=== PATIENT | female | born 1960 | race Caucasian/White ===

== ENCOUNTER 2023-09-06 07:59 | Inpatient (IN) | payer SELFPAY ==
[2023-09-06] MEDS ORDERED: Ondansetron PF 4 MG/2 ML Vial ONE (08:15)
[2023-09-06 08:56] LABS: #Basophils 0.1 thou/uL (0.0-0.2); #Eosinphils 0.1 thou/uL (0.0-0.7); #Monocytes 0.5 thou/uL (0.11-0.59); #Neutrophils 4.5 thou/uL (1.40-6.50); %Basophils 0.8 % (0.0-1.0); %Lymphocytes 19.4 % (21.0-51.0); %Monocytes 7.9 % (0.0-10.0); %Neutrophils 70.6 % (42.0-75.0); Hematocrit 37.5 % (36.0-47.0); Hemoglobin 12.7 g/dL (12.0-16.0); Mean Corpuscular HGB CONC 33.9 g/dL (32.0-36.0); Mean Corpuscular Hemoglobin 29.2 pg (27.0-31.0); Mean Corpuscular Volume 86.2 fl (78.0-98.0); Mean Platelet Volume 10.4 fL (7.4-10.4); Platelet Count 307 10x3/uL (130-400); RBC Distribution Width 11.7 % (11.5-14.5); Red Blood Cell (RBC) Count 4.35 mill/uL (4.20-5.40); White Blood Cell (WBC) Count 6.3 10x3/uL (4.8-10.8)
[2023-09-06 09:18] LABS: ALT (SGPT) 10 U/L (8-55); AST (SGOT) 18 U/L (5-34); Albumin 3.7 g/dL (3.4-4.8); Alkaline Phosphatase 109 U/L (40-110); Anion Gap 20 mmol/L (10-20); BUN (Urea Nitrogen) 15 mg/dL (9.8-20.1); Bilirubin, Total 0.5 mg/dL (0.2-1.2); Calc. Creatinine Clearance 0 mL/min (70-130); Carbon Dioxide 21 mmol/L (23-31); Chloride 95 mmol/L (98-107); Estimated GFR 63; Globulin 3.7 g/dL (2.4-3.5); Potassium 3.9 mmol/L (3.5-5.1); Protein, Total 7.4 g/dL (5.8-8.1); Sodium 132 mmol/L (136-145)
[2023-09-06 09:28] LABS: Troponin I 0.592 ng/mL (< 0.028)
[2023-09-06 09:29] LABS: Glucose 570 mg/dL (80-115)
[2023-09-06] MEDS ORDERED: Nitroglycerin 0.4 MG TAB 1 EACH ONE (09:54)
[2023-09-06] MEDS ORDERED: Insulin Regular 300 UNITS/3 ML VIAL ONE (09:55)
[2023-09-06] MEDS ORDERED: Glucagon 1 MG/ML KIT IM PRN (10:09)
[2023-09-06] MEDS ORDERED: Dextrose 50% Abboject 50 ML SYRINGE SLOW IVP PRN (10:09)
[2023-09-06] MEDS ORDERED: Dextrose 5% in Water 1,000 ML IV PRN (10:09)
[2023-09-06] MEDS ORDERED: Nitroglycerin 0.4 MG TAB (25 Tab Bottle) SL PRN (10:09)
[2023-09-06] MEDS ORDERED: Insulin Regular 300 UNITS/3 ML VIAL SC PRN (10:09)
[2023-09-06] MEDS ORDERED: Communication Order-Pharmacy FS SCH (10:11)
[2023-09-06 12:15] VITALS: BMI 26.7
[2023-09-06] MEDS ORDERED: Aspirin 81 mg Enteric Coated Tablet PO SCH (12:15)
[2023-09-06] MEDS ORDERED: Acetaminophen 325 MG TAB PO PRN (14:35)
[2023-09-06] MEDS ORDERED: Nitroglycerin 2% Ointment 1 INCH/1 GM Packet ONE (15:15)
[2023-09-06 15:16] LABS: Troponin I 3.907 ng/mL (< 0.028)
[2023-09-06] MEDS ORDERED: Nitroglycerin 2% Ointment 1 INCH/1 GM Packet TOP SCH (15:45)
[2023-09-06] MEDS ORDERED: Morphine 2 MG/ML VIAL SLOW IVP SCH (15:45)
[2023-09-06] MEDS: Insulin Regular 300 UNITS/3 ML VIAL SC PRN (15:53)
[2023-09-06] MEDS: Nitroglycerin 50 MG/250 ML BOT 250 ML IVPB SCH (16:16)
[2023-09-06] MEDS: Atorvastatin Calcium 40 MG TAB PO SCH (20:28)
[2023-09-07] MEDS ORDERED: Communication Order-Pharmacy FS SCH ×2 (06:00→17:03)
[2023-09-07] MEDS: Insulin Regular 300 UNITS/3 ML VIAL SC PRN ×3 (06:39→16:31)
[2023-09-07 08:09] LABS: Cardiac Risk 8.3 (Less than 4.5)
[2023-09-07] MEDS ORDERED: Verapamil 5 MG/2 ML VIAL ONE (08:45)
[2023-09-07] MEDS ORDERED: Midazolam HCl 2 mg/2 ml Vial ONE (08:45)
[2023-09-07] MEDS ORDERED: fentaNYL 50 mcg/mL 1 mL Vial ONE (08:45)
[2023-09-07] MEDS ORDERED: Adenosine 6 MG/2 ML VIAL ONE (08:45)
[2023-09-07] MEDS ORDERED: Lidocaine 1% (PF) 30 ML VIAL ONE ×2 (08:46→12:32)
[2023-09-07] MEDS ORDERED: Heparin 10,000 UNITS/ 10 ML VIAL ONE ×2 (08:46→12:32)
[2023-09-07] MEDS ORDERED: Nitroglycerin 50 MG/250 ML BOT 0 ML ONE (08:46)
[2023-09-07] MEDS ORDERED: Iopamidol 370 76% 100 ML VIAL ONE (08:50)
[2023-09-07] MEDS: Metoprolol Tartrate 25 MG TAB PO SCH ×2 (08:56→19:43)
[2023-09-07] MEDS ORDERED: Aspirin 81 mg Enteric Coated Tablet PO SCH (09:00)
[2023-09-07] MEDS ORDERED: NOREPINEPHRINE 8 MG/250 ML-D5W 250 ML ONE (14:13)
[2023-09-07] MEDS ORDERED: Metoprolol Tartrate 25 MG TAB PO SCH (16:15)
[2023-09-07] MEDS: Nitroglycerin 50 MG/250 ML BOT 250 ML IVPB SCH (16:50)
[2023-09-07 18:33] LABS: Troponin I 36.018 ng/mL (< 0.028)
[2023-09-07] MEDS: Atorvastatin Calcium 40 MG TAB PO SCH (19:43)
[2023-09-08] MEDS: Metoprolol Tartrate 25 MG TAB PO SCH (05:20)
[2023-09-08] MEDS: Insulin Regular 300 UNITS/3 ML VIAL SC PRN (05:21)
[2023-09-08 05:33] LABS: Hemoglobin A1c Greater than 14.0 % (4.0-6.0)
[2023-09-08 05:47] LABS: Anion Gap 20 mmol/L (10-20); BUN (Urea Nitrogen) 10 mg/dL (9.8-20.1); Calc. Creatinine Clearance 80 mL/min (70-130); Calcium 9.3 mg/dL (7.8-10.44); Carbon Dioxide 16 mmol/L (23-31); Chloride 102 mmol/L (98-107); Estimated GFR 80; Glucose 327 mg/dL (80-115); Potassium 3.7 mmol/L (3.5-5.1); Sodium 134 mmol/L (136-145)
[2023-09-08] MEDS ORDERED: Lactated Ringer's 1,000 ML IV SCH (06:00)
[2023-09-08] MEDS ORDERED: Ketamine In 0.9 % NaCl 50 MG/5 ML SYRINGE ONE (07:56)
[2023-09-08] MEDS ORDERED: Aminocaproic Acid 5 GM/20 ML VIAL ONE ×2 (07:56→10:54)
[2023-09-08] MEDS ORDERED: PROPOFOL 20 ML ONE (07:56)
[2023-09-08] MEDS ORDERED: Lidocaine 2% PF 5 ML VIAL ONE (07:56)
[2023-09-08] MEDS ORDERED: Fentanyl 250 MCG/5 ML VIAL ONE ×2 (07:56→13:33)
[2023-09-08] MEDS ORDERED: Rocuronium Bromide 10 MG/ML (10ML VIAL) ONE ×3 (07:56→11:39)
[2023-09-08] MEDS ORDERED: Lidocaine 2% PF 100 mg/5 ml Syringe ONE ×2 (07:56→10:54)
[2023-09-08] MEDS ORDERED: Norepinephrine 4 MG/4 ML VIAL ONE (07:56)
[2023-09-08] MEDS ORDERED: Midazolam HCl 2 mg/2 ml Vial ONE (07:56)
[2023-09-08] MEDS ORDERED: ePHEDrine Sulfate 50 MG/10 ML VIAL ONE (07:57)
[2023-09-08] MEDS ORDERED: CEFAZOLIN 1 GM VIAL ONE (07:57)
[2023-09-08] MEDS ORDERED: PHENYLEPHRINE-NS 100 MCG/ML 10 ML SYRINGE ONE ×2 (07:57→10:54)
[2023-09-08] MEDS ORDERED: Esmolol 100 MG/10 ML VIAL ONE (07:57)
[2023-09-08] MEDS ORDERED: Sodium Chloride 0.9% 250 ML 250 ML ONE (07:58)
[2023-09-08] MEDS ORDERED: Albumin 5% 500 ML ONE (09:13)
[2023-09-08] MEDS ORDERED: Heparin 10,000 UNITS/1 ML VIAL 30,000 UNITS in Sodium Chloride 0.9% 1,000 ML FS SCH (09:15)
[2023-09-08] MEDS ORDERED: Insulin Regular 300 UNITS/3 ML VIAL ONE (10:21)
[2023-09-08] MEDS ORDERED: niCARdipine 25 MG/10 ML SDV ONE (10:49)
[2023-09-08] MEDS ORDERED: Cardioplegic Soln 1,000 ML BAG ONE (10:54)
[2023-09-08] MEDS ORDERED: Thrombin 5000 UNITS/5 ML VIAL ONE (10:54)
[2023-09-08] MEDS ORDERED: Mannitol 12.5 GM/50 ML ONE (10:54)
[2023-09-08] MEDS ORDERED: Potassium Chloride 60 MEQ/30 ML VIAL ONE (10:54)
[2023-09-08] MEDS ORDERED: Lidocaine 1% PF 5 ML VIAL ONE (10:54)
[2023-09-08] MEDS ORDERED: Calcium Chloride 1 GM/10 ML Abboject SYRINGE ONE (10:54)
[2023-09-08] MEDS ORDERED: Papaverine 60 MG/2 ML VIAL ONE (10:54)
[2023-09-08] MEDS ORDERED: PROPOFOL 200 MG/20 ML VIAL ONE (10:54)
[2023-09-08] MEDS ORDERED: Vancomycin 1 GM VIAL ONE (10:54)
[2023-09-08] MEDS ORDERED: Heparin 5,000 UNITS/ML VIAL ONE (10:54)
[2023-09-08] MEDS ORDERED: Magnesium 5 GM/10 ML VIAL ONE (10:54)
[2023-09-08] MEDS ORDERED: Heparin 30,000 units/30 ml VIAL ONE (10:54)
[2023-09-08] MEDS ORDERED: Protamine Sulfate 250 MG/25 ML VIAL ONE (10:54)
[2023-09-08] MEDS ORDERED: Sodium Bicarb 50 MEQ/50 ML VIAL ONE (10:54)
[2023-09-08] MEDS ORDERED: Post-Op Insulin Drip Protocol IVPB ONE (14:34)
[2023-09-08] MEDS ORDERED: Ipratropium/Albuterol 3 ML NEB NEB PRN (14:34)
[2023-09-08] MEDS ORDERED: fentaNYL 50 mcg/mL 1 mL Vial SLOW IVP PRN (14:34)
[2023-09-08] MEDS ORDERED: Bisacodyl 10 MG SUPP PR PRN (14:34)
[2023-09-08] MEDS ORDERED: niCARdipine 25 MG in Sodium Chloride 0.9% 250 ML 250 ML IVPB PRN (14:34)
[2023-09-08] MEDS ORDERED: HYDROcodone/Acetaminophen 5/325 mg Tablet PO PRN ×2 (14:34)
[2023-09-08] MEDS ORDERED: NOREPINEPHRINE 8 MG/250 ML-D5W 250 ML IVPB PRN (14:34)
[2023-09-08] MEDS ORDERED: hydrALAZINE 20 MG/ML VIAL SLOW IVP PRN (14:34)
[2023-09-08] MEDS ORDERED: Guaifenesin DM 100-10/5 ML UDCUP PO PRN (14:34)
[2023-09-08] MEDS ORDERED: Ondansetron PF 4 MG/2 ML Vial IVP PRN (14:34)
[2023-09-08] MEDS ORDERED: Mag-Al 1200 mg/1200 mg/30 ML UDCUP PO PRN (14:34)
[2023-09-08] MEDS ORDERED: Nitroglycerin 50 MG/250 ML BOT 250 ML IVPB PRN (14:34)
[2023-09-08] MEDS ORDERED: Bisacodyl 5 MG TAB PO PRN (14:34)
[2023-09-08] MEDS ORDERED: Promethazine HCl 25 MG/ML VIAL IVPB PRN (14:34)
[2023-09-08] MEDS ORDERED: Hetastarch 6% 500 ML 500 ML IVPB PRN (14:34)
[2023-09-08] MEDS ORDERED: Morphine 2 MG/ML VIAL SLOW IVP PRN (14:34)
[2023-09-08] MEDS ORDERED: DOPamine 400 MG/D5W 250 ML 250 ML IVPB PRN (14:34)
[2023-09-08] MEDS: CEFAZOLIN 2 GM in Sodium Chloride 0.9% 100 ML IVPB SCH (14:58)
[2023-09-08] MEDS ORDERED: Dextrose 50% Abboject 50 ML SYRINGE SLOW IVP PRN (15:00)
[2023-09-08] MEDS ORDERED: HUMULIN R 100 UNITS in Sodium Chloride 0.9% 100 ML IVPB SCH (15:00)
[2023-09-08] MEDS ORDERED: Glucagon 1 MG/ML KIT SC PRN (15:00)
[2023-09-08] MEDS ORDERED: Dextrose 5% in Water 1,000 ML IV PRN (15:00)
[2023-09-08] MEDS: fentaNYL 50 mcg/mL 1 mL Vial SLOW IVP PRN ×2 (15:03→21:55)
[2023-09-08 15:06] LABS: #Basophils 0.1 thou/uL (0.0-0.2); #Eosinphils 0.1 thou/uL (0.0-0.7); #Neutrophils 8.4 thou/uL (1.40-6.50); %Basophils 0.4 % (0.0-1.0); %Lymphocytes 18.2 % (21.0-51.0); %Monocytes 8.2 % (0.0-10.0); %Neutrophils 71.4 % (42.0-75.0); Hematocrit 33.7 % (36.0-47.0); Hemoglobin 11.2 g/dL (12.0-16.0); Mean Corpuscular HGB CONC 33.2 g/dL (32.0-36.0); Mean Corpuscular Hemoglobin 29.9 pg (27.0-31.0); Mean Corpuscular Volume 89.9 fl (78.0-98.0); Mean Platelet Volume 10.3 fL (7.4-10.4); Platelet Count 172 10x3/uL (130-400); RBC Distribution Width 12.4 % (11.5-14.5); Red Blood Cell (RBC) Count 3.75 mill/uL (4.20-5.40); White Blood Cell (WBC) Count 11.8 10x3/uL (4.8-10.8)
[2023-09-08 15:19] LABS: INR-International Normal Ratio 1.4; PTT 26.8 sec (22.9-36.1); Prothrombin Time 17.4 sec (12.0-14.7)
[2023-09-08 15:20] LABS: Actual Bicarbonate (HCO3a) 19.7 mEq/L (22-28); Base Excess (BEa) -5.7 mEq/L (-2.0 to +3.0); CO2 Tension 38.1 mmHg (35.0-45.0); Calcium, Ionized (arterial) 1.19 mmol/L (1.12-1.30); Carboxyhemoglobin (COHb) 0.6 gm% (0.0-3.0); Hematocrit-ABG 36 % (36.0-47.0); Hemoglobin (Hb) 12.4 g/dL (12.0-16.0); O2 Tension (PaO2), arterial 113.4 mmHg (> 80.0); Potassium - ABG Lab 3.51 mmol/L (3.70-5.30); pH, Arterial 7.331 (7.35-7.45)
[2023-09-08] MEDS: Lactated Ringer's 1,000 ML IV SCH (15:25)
[2023-09-08 15:31] LABS: Anion Gap 13 mmol/L (10-20); BUN (Urea Nitrogen) 9 mg/dL (9.8-20.1); Calc. Creatinine Clearance 95 mL/min (70-130); Calcium 8.5 mg/dL (7.8-10.44); Carbon Dioxide 22 mmol/L (23-31); Chloride 108 mmol/L (98-107); Estimated GFR 97; Glucose 184 mg/dL (80-115); Potassium 3.4 mmol/L (3.5-5.1); Sodium 140 mmol/L (136-145)
[2023-09-08 15:31] LABS: Puncture Site ALINE
[2023-09-08] MEDS: Ketorolac Tromethamine 30 MG/ML VIAL IVP SCH (17:07)
[2023-09-08] MEDS: Potassium Chloride 20 MEQ/100 ML PREMIX BAG IVPB PRN ×2 (17:21→21:52)
[2023-09-08 17:37] LABS: Base Excess (BEa) -10.2 mEq/L (-2.0 to +3.0); CO2 Tension 25.7 mmHg (35.0-45.0); Carboxyhemoglobin (COHb) 0.2 gm% (0.0-3.0); Hematocrit-ABG 36 % (36.0-47.0); Hemoglobin (Hb) 12.2 g/dL (12.0-16.0); Potassium - ABG Lab 3.16 mmol/L (3.70-5.30); pH, Arterial 7.347 (7.35-7.45)
[2023-09-08 17:41] LABS: ALV-art Gradient 119.075 mmHg (0-20); Actual Bicarbonate (HCO3a) 13.8 mEq/L (22-28); Puncture Site ALINE
[2023-09-08] MEDS ORDERED: Sodium Bicarb 50 MEQ/50 ML Abboject 8.4% SYRINGE IVP SCH ×2 (18:00→19:00)
[2023-09-08 19:28] LABS: Actual Bicarbonate (HCO3a) 21.4 mEq/L (22-28); Base Excess (BEa) -1.2 mEq/L (-2.0 to +3.0); CO2 Tension 29.2 mmHg (35.0-45.0); Calcium, Ionized (arterial) 1.14 mmol/L (1.12-1.30); Carboxyhemoglobin (COHb) 0.3 gm% (0.0-3.0); Hematocrit-ABG 33 % (36.0-47.0); Hemoglobin (Hb) 11.1 g/dL (12.0-16.0); Potassium - ABG Lab 3.12 mmol/L (3.70-5.30); pH, Arterial 7.483 (7.35-7.45)
[2023-09-08 19:48] LABS: Puncture Site Arterial Line
[2023-09-08 20:20] LABS: Hematocrit 30.4 % (36.0-47.0); Hemoglobin 9.9 g/dL (12.0-16.0)
[2023-09-08] MEDS: Famotidine/PF 20 mg/2ml Vial SLOW IVP SCH (20:22)
[2023-09-08 20:48] LABS: Potassium 3.1 mmol/L (3.5-5.1)
[2023-09-08] MEDS ORDERED: Atorvastatin Calcium 20 MG TAB PO SCH (21:00)
[2023-09-09] MEDS: CEFAZOLIN 2 GM in Sodium Chloride 0.9% 100 ML IVPB SCH ×2 (00:01→07:41)
[2023-09-09] MEDS: Ketorolac Tromethamine 30 MG/ML VIAL IVP SCH ×2 (00:01→05:02)
[2023-09-09 04:18] LABS: #Monocytes 1.1 thou/uL (0.11-0.59); %Basophils 0.1 % (0.0-1.0); %Lymphocytes 8.8 % (21.0-51.0); %Monocytes 11.9 % (0.0-10.0); %Neutrophils 78.9 % (42.0-75.0); Hematocrit 30.1 % (36.0-47.0); Hemoglobin 10.1 g/dL (12.0-16.0); Mean Corpuscular HGB CONC 33.6 g/dL (32.0-36.0); Mean Corpuscular Hemoglobin 30.1 pg (27.0-31.0); Mean Corpuscular Volume 89.9 fl (78.0-98.0); Mean Platelet Volume 10.7 fL (7.4-10.4); Platelet Count 169 10x3/uL (130-400); RBC Distribution Width 12.7 % (11.5-14.5); Red Blood Cell (RBC) Count 3.35 mill/uL (4.20-5.40); White Blood Cell (WBC) Count 8.8 10x3/uL (4.8-10.8)
[2023-09-09 04:45] LABS: Anion Gap 17 mmol/L (10-20); BUN (Urea Nitrogen) 9 mg/dL (9.8-20.1); Calc. Creatinine Clearance 88 mL/min (70-130); Calcium 8.4 mg/dL (7.8-10.44); Carbon Dioxide 19 mmol/L (23-31); Chloride 109 mmol/L (98-107); Estimated GFR 90; Glucose 143 mg/dL (80-115); Potassium 3.2 mmol/L (3.5-5.1); Sodium 142 mmol/L (136-145)
[2023-09-09] MEDS: Potassium Chloride 20 MEQ/100 ML PREMIX BAG IVPB PRN (05:02)
[2023-09-09] MEDS: Lactated Ringer's 1,000 ML IV SCH (05:02)
[2023-09-09] MEDS ORDERED: traMADol HCl 50 MG TAB PO PRN (06:56)
[2023-09-09] MEDS ORDERED: Insulin Glargine 30 UNITS/0.3 ML VIAL SC SCH (07:30)
[2023-09-09] MEDS: Acetaminophen 325 MG TAB PO PRN ×2 (07:42→22:51)
[2023-09-09] MEDS: Famotidine/PF 20 mg/2ml Vial SLOW IVP SCH ×2 (07:42→22:50)
[2023-09-09] MEDS: Polyethylene Glycol 3350 17 GM Packet PO SCH (08:06)
[2023-09-09] MEDS: Insulin Regular 300 UNITS/3 ML VIAL SC PRN ×4 (08:24→21:08)
[2023-09-09] MEDS ORDERED: Furosemide 40 MG/4 ML VIAL SLOW IVP SCH (09:00)
[2023-09-09] MEDS ORDERED: Aspirin 325 MG TAB PO SCH (09:00)
[2023-09-09] MEDS: Atorvastatin Calcium 40 MG TAB PO SCH (22:50)
[2023-09-10] MEDS: Insulin Regular 300 UNITS/3 ML VIAL SC PRN ×5 (00:41→21:35)
[2023-09-10 04:47] LABS: #Monocytes 0.9 thou/uL (0.11-0.59); #Neutrophils 6.1 thou/uL (1.40-6.50); %Basophils 0.5 % (0.0-1.0); %Eosinophils 0.4 % (0.0-10.0); %Lymphocytes 14.5 % (21.0-51.0); %Monocytes 10.8 % (0.0-10.0); %Neutrophils 73.4 % (42.0-75.0); Hemoglobin 9.5 g/dL (12.0-16.0); Mean Corpuscular HGB CONC 32.8 g/dL (32.0-36.0); Mean Corpuscular Volume 91.5 fl (78.0-98.0); Mean Platelet Volume 10.8 fL (7.4-10.4); Platelet Count 170 10x3/uL (130-400); Red Blood Cell (RBC) Count 3.17 mill/uL (4.20-5.40); White Blood Cell (WBC) Count 8.3 10x3/uL (4.8-10.8)
[2023-09-10 05:35] LABS: Anion Gap 14 mmol/L (10-20); BUN (Urea Nitrogen) 9 mg/dL (9.8-20.1); Calc. Creatinine Clearance 94 mL/min (70-130); Calcium 8.4 mg/dL (7.8-10.44); Carbon Dioxide 22 mmol/L (23-31); Chloride 104 mmol/L (98-107); Estimated GFR 97; Glucose 194 mg/dL (80-115); Potassium 3.1 mmol/L (3.5-5.1); Sodium 137 mmol/L (136-145)
[2023-09-10] MEDS: Potassium Chloride 20 MEQ/100 ML PREMIX BAG IVPB PRN (06:11)
[2023-09-10] MEDS ORDERED: Mag-Al 1200 mg/1200 mg/30 ML UDCUP PO PRN (08:14)
[2023-09-10] MEDS ORDERED: Mineral Oil ENEMA PR PRN (08:14)
[2023-09-10] MEDS ORDERED: Nitroglycerin 0.4 MG TAB (25 Tab Bottle) SL PRN (08:14)
[2023-09-10] MEDS ORDERED: diphenhydrAMINE 25 MG CAP PO PRN (08:14)
[2023-09-10] MEDS ORDERED: Bisacodyl 5 MG TAB PO PRN (08:14)
[2023-09-10] MEDS ORDERED: Bisacodyl 10 MG SUPP PR PRN (08:14)
[2023-09-10] MEDS: Polyethylene Glycol 3350 17 GM Packet PO SCH (09:43)
[2023-09-10] MEDS: Insulin Glargine 30 UNITS/0.3 ML VIAL SC SCH ×2 (09:49→21:18)
[2023-09-10] MEDS: Aspirin 325 mg Enteric Coated Tablet PO SCH (09:50)
[2023-09-10] MEDS: Famotidine 20 MG TAB PO SCH ×2 (09:50→21:18)
[2023-09-10] MEDS: Metoprolol Tartrate 25 MG TAB PO SCH ×2 (09:50→21:19)
[2023-09-10] MEDS: Potassium Chloride 20 MEQ TAB PO SCH (09:54)
[2023-09-10] MEDS ORDERED: Dextrose 50% Abboject 50 ML SYRINGE SLOW IVP PRN (10:00)
[2023-09-10] MEDS ORDERED: Glucagon 1 MG/ML KIT SC PRN (10:00)
[2023-09-10] MEDS ORDERED: Dextrose 5% in Water 1,000 ML IV PRN (10:00)
[2023-09-10] MEDS: Acetaminophen 325 MG TAB PO PRN (10:17)
[2023-09-10] MEDS: Furosemide 40 MG/4 ML VIAL SLOW IVP SCH (15:27)
[2023-09-10] MEDS: Atorvastatin Calcium 40 MG TAB PO SCH (21:18)
[2023-09-11 04:46] LABS: #Basophils 0.1 thou/uL (0.0-0.2); #Eosinphils 0.1 thou/uL (0.0-0.7); #Monocytes 0.8 thou/uL (0.11-0.59); %Basophils 0.7 % (0.0-1.0); %Eosinophils 1.4 % (0.0-10.0); %Lymphocytes 15.9 % (21.0-51.0); %Monocytes 9.6 % (0.0-10.0); %Neutrophils 72.2 % (42.0-75.0); Hematocrit 33.1 % (36.0-47.0); Hemoglobin 10.6 g/dL (12.0-16.0); Mean Corpuscular Hemoglobin 28.7 pg (27.0-31.0); Mean Corpuscular Volume 89.7 fl (78.0-98.0); Platelet Count 226 10x3/uL (130-400); Red Blood Cell (RBC) Count 3.69 mill/uL (4.20-5.40); White Blood Cell (WBC) Count 8.3 10x3/uL (4.8-10.8)
[2023-09-11 05:23] LABS: Anion Gap 13 mmol/L (10-20); BUN (Urea Nitrogen) 7 mg/dL (9.8-20.1); Calc. Creatinine Clearance 104 mL/min (70-130); Calcium 8.6 mg/dL (7.8-10.44); Carbon Dioxide 26 mmol/L (23-31); Chloride 101 mmol/L (98-107); Estimated GFR 98; Glucose 177 mg/dL (80-115); Potassium 2.8 mmol/L (3.5-5.1); Sodium 137 mmol/L (136-145)
[2023-09-11] MEDS: Furosemide 40 MG/4 ML VIAL SLOW IVP SCH ×2 (07:45→16:00)
[2023-09-11] MEDS: Insulin Regular 300 UNITS/3 ML VIAL SC PRN ×4 (07:47→21:00)
[2023-09-11] MEDS: Polyethylene Glycol 3350 17 GM Packet PO SCH (09:15)
[2023-09-11] MEDS: Acetaminophen 325 MG TAB PO PRN ×2 (09:15→16:00)
[2023-09-11] MEDS: Insulin Glargine 30 UNITS/0.3 ML VIAL SC SCH ×2 (09:15→20:59)
[2023-09-11] MEDS: Metoprolol Tartrate 25 MG TAB PO SCH ×2 (09:16→20:59)
[2023-09-11] MEDS: Famotidine 20 MG TAB PO SCH ×2 (09:16→20:59)
[2023-09-11] MEDS: Potassium Chloride 20 MEQ TAB PO SCH (09:16)
[2023-09-11] MEDS: Aspirin 325 mg Enteric Coated Tablet PO SCH (09:16)
[2023-09-11] MEDS ORDERED: Potassium Chloride 20 MEQ TAB PO SCH (19:45)
[2023-09-11] MEDS: Atorvastatin Calcium 40 MG TAB PO SCH (20:59)
[2023-09-12 06:22] LABS: Anion Gap 14 mmol/L (10-20); BUN (Urea Nitrogen) 7 mg/dL (9.8-20.1); Calc. Creatinine Clearance 95 mL/min (70-130); Calcium 8.5 mg/dL (7.8-10.44); Carbon Dioxide 29 mmol/L (23-31); Chloride 98 mmol/L (98-107); Estimated GFR 92; Glucose 186 mg/dL (80-115); Sodium 138 mmol/L (136-145)
[2023-09-12] MEDS: Furosemide 40 MG/4 ML VIAL SLOW IVP SCH ×2 (06:47→15:07)
[2023-09-12] MEDS: Acetaminophen 325 MG TAB PO PRN ×2 (07:49→09:30)
[2023-09-12] MEDS: Potassium Chloride 20 MEQ TAB PO SCH ×3 (09:23→16:34)
[2023-09-12] MEDS: Polyethylene Glycol 3350 17 GM Packet PO SCH (09:23)
[2023-09-12] MEDS: Insulin Glargine 30 UNITS/0.3 ML VIAL SC SCH ×2 (09:23→20:48)
[2023-09-12] MEDS: Aspirin 325 mg Enteric Coated Tablet PO SCH (09:24)
[2023-09-12] MEDS: Metoprolol Tartrate 25 MG TAB PO SCH ×2 (09:24→20:46)
[2023-09-12] MEDS: Famotidine 20 MG TAB PO SCH ×2 (09:24→20:46)
[2023-09-12] MEDS: Insulin Regular 300 UNITS/3 ML VIAL SC PRN ×2 (12:08→17:23)
[2023-09-12] MEDS: Atorvastatin Calcium 40 MG TAB PO SCH (20:48)
[2023-09-13] MEDS ORDERED: Ketorolac Tromethamine 30 MG/ML VIAL IVP SCH (00:15)
[2023-09-13] MEDS: Acetaminophen 325 MG TAB PO PRN ×2 (00:50→20:12)
[2023-09-13 01:17] LABS: #Eosinphils 0.1 thou/uL (0.0-0.7); #Monocytes 1.1 thou/uL (0.11-0.59); #Neutrophils 5.5 thou/uL (1.40-6.50); %Basophils 0.5 % (0.0-1.0); %Eosinophils 1.4 % (0.0-10.0); %Lymphocytes 14.3 % (21.0-51.0); %Monocytes 13.8 % (0.0-10.0); %Neutrophils 69.6 % (42.0-75.0); Hematocrit 32.1 % (36.0-47.0); Hemoglobin 10.6 g/dL (12.0-16.0); Mean Corpuscular Hemoglobin 29.2 pg (27.0-31.0); Mean Corpuscular Volume 88.4 fl (78.0-98.0); Platelet Count 287 10x3/uL (130-400); RBC Distribution Width 13.1 % (11.5-14.5); Red Blood Cell (RBC) Count 3.63 mill/uL (4.20-5.40); White Blood Cell (WBC) Count 7.8 10x3/uL (4.8-10.8)
[2023-09-13 01:36] LABS: Anion Gap 17 mmol/L (10-20); BUN (Urea Nitrogen) 8 mg/dL (9.8-20.1); Calc. Creatinine Clearance 89 mL/min (70-130); Calcium 8.6 mg/dL (7.8-10.44); Carbon Dioxide 25 mmol/L (23-31); Chloride 100 mmol/L (98-107); Estimated GFR 87; Glucose 156 mg/dL (80-115); Potassium 3.8 mmol/L (3.5-5.1); Sodium 138 mmol/L (136-145)
[2023-09-13 05:19] LABS: Bacteria/HPF 3+ HPF (None Seen); Bilirubin Negative (Negative); Blood, Urine Trace (Negative); CAUTI Indications for Culture Fever or rigors; Clarity Turbid (Clear); Glucose, Urine (Dipstick) Normal (Negative); Ketone, Urine Negative (Negative); Leukocyte 250 Leu/uL (Negative); Nitrite 2+ (Negative); Protein, Urine (Dipstick) 20 mg/dL (Neg-Trace); RBC/HPF 21-50 HPF (0-3); Specific Gravity, Urine 1.012 (1.002-1.036); Squamous Epithelial 0-3 HPF (0-3); Transitional Epithelial 0-3 HPF (None Seen); Urobilinogen Normal mg/dL (Less than 2); Yeast-Budding 1+ HPF (None Seen)
[2023-09-13] MEDS: Furosemide 40 MG/4 ML VIAL SLOW IVP SCH (05:43)
[2023-09-13 05:46] LABS: Urine Culture Reflex Yes Yes
[2023-09-13] MEDS: Insulin Regular 300 UNITS/3 ML VIAL SC PRN ×3 (07:21→21:32)
[2023-09-13] MEDS ORDERED: Lisinopril 2.5 MG TAB PO SCH (09:00)
[2023-09-13] MEDS: cefTRIAXone\\ROCEPHIN 1 GM in Sodium Chloride 0.9% 100 ML IVPB SCH (09:28)
[2023-09-13] MEDS: Clopidogrel Bisulfate 75 MG TAB PO SCH (09:28)
[2023-09-13] MEDS: Insulin Glargine 30 UNITS/0.3 ML VIAL SC SCH ×2 (09:29→20:12)
[2023-09-13] MEDS: Polyethylene Glycol 3350 17 GM Packet PO SCH (09:29)
[2023-09-13] MEDS: Aspirin 81 mg Enteric Coated Tablet PO SCH (09:29)
[2023-09-13] MEDS: Famotidine 20 MG TAB PO SCH ×2 (09:29→20:11)
[2023-09-13] MEDS: Metoprolol Tartrate 25 MG TAB PO SCH ×2 (09:29→20:12)
[2023-09-13] MEDS: Atorvastatin Calcium 40 MG TAB PO SCH (20:12)
[2023-09-14] MEDS: cefTRIAXone\\ROCEPHIN 1 GM in Sodium Chloride 0.9% 100 ML IVPB SCH (08:22)
[2023-09-14] MEDS: Famotidine 20 MG TAB PO SCH ×2 (08:22→20:29)
[2023-09-14] MEDS: Aspirin 81 mg Enteric Coated Tablet PO SCH (08:22)
[2023-09-14] MEDS: Metoprolol Tartrate 25 MG TAB PO SCH ×2 (08:23→20:29)
[2023-09-14] MEDS: Lisinopril 5 MG TAB PO SCH ×2 (08:23→20:29)
[2023-09-14] MEDS: Polyethylene Glycol 3350 17 GM Packet PO SCH (08:25)
[2023-09-14] MEDS: Insulin Glargine 30 UNITS/0.3 ML VIAL SC SCH ×2 (08:25→20:29)
[2023-09-14] MEDS: Clopidogrel Bisulfate 75 MG TAB PO SCH (08:25)
[2023-09-14 08:58] LABS: #Basophils 0.1 thou/uL (0.0-0.2); #Eosinphils 0.2 thou/uL (0.0-0.7); #Monocytes 0.9 thou/uL (0.11-0.59); #Neutrophils 5.6 thou/uL (1.40-6.50); %Basophils 0.6 % (0.0-1.0); %Eosinophils 2.2 % (0.0-10.0); %Lymphocytes 16.6 % (21.0-51.0); %Monocytes 10.9 % (0.0-10.0); %Neutrophils 69.1 % (42.0-75.0); Hematocrit 35.8 % (36.0-47.0); Hemoglobin 11.4 g/dL (12.0-16.0); Mean Corpuscular HGB CONC 31.8 g/dL (32.0-36.0); Mean Corpuscular Hemoglobin 28.6 pg (27.0-31.0); Mean Corpuscular Volume 89.7 fl (78.0-98.0); Mean Platelet Volume 10.1 fL (7.4-10.4); Platelet Count 362 10x3/uL (130-400); RBC Distribution Width 13.2 % (11.5-14.5); Red Blood Cell (RBC) Count 3.99 mill/uL (4.20-5.40); White Blood Cell (WBC) Count 8.1 10x3/uL (4.8-10.8)
[2023-09-14] MEDS ORDERED: Lisinopril 2.5 MG TAB PO SCH (09:00)
[2023-09-14 09:18] LABS: Anion Gap 16 mmol/L (10-20); BUN (Urea Nitrogen) 10 mg/dL (9.8-20.1); Calc. Creatinine Clearance 95 mL/min (70-130); Calcium 9.3 mg/dL (7.8-10.44); Carbon Dioxide 27 mmol/L (23-31); Chloride 99 mmol/L (98-107); Estimated GFR 95; Glucose 106 mg/dL (80-115); Potassium 3.5 mmol/L (3.5-5.1); Sodium 138 mmol/L (136-145)
[2023-09-14] MEDS: Insulin Regular 300 UNITS/3 ML VIAL SC PRN (20:28)
[2023-09-14] MEDS: Acetaminophen 325 MG TAB PO PRN (20:29)
[2023-09-14] MEDS: Atorvastatin Calcium 40 MG TAB PO SCH (20:29)
[2023-09-15 04:50] LABS: Anion Gap 14 mmol/L (10-20); BUN (Urea Nitrogen) 10 mg/dL (9.8-20.1); Calc. Creatinine Clearance 90 mL/min (70-130); Calcium 8.9 mg/dL (7.8-10.44); Carbon Dioxide 25 mmol/L (23-31); Chloride 101 mmol/L (98-107); Estimated GFR 89; Glucose 124 mg/dL (80-115); Potassium 3.1 mmol/L (3.5-5.1); Sodium 137 mmol/L (136-145)
[2023-09-15] MEDS: cefTRIAXone\\ROCEPHIN 1 GM in Sodium Chloride 0.9% 100 ML IVPB SCH (08:52)
[2023-09-15] MEDS: Famotidine 20 MG TAB PO SCH ×2 (08:52→20:33)
[2023-09-15] MEDS: Metoprolol Tartrate 25 MG TAB PO SCH ×2 (08:52→20:33)
[2023-09-15] MEDS: Aspirin 81 mg Enteric Coated Tablet PO SCH (08:52)
[2023-09-15] MEDS: Clopidogrel Bisulfate 75 MG TAB PO SCH (08:53)
[2023-09-15] MEDS: Lisinopril 5 MG TAB PO SCH ×2 (08:53→20:33)
[2023-09-15] MEDS: Insulin Glargine 30 UNITS/0.3 ML VIAL SC SCH ×2 (08:53→20:33)
[2023-09-15] MEDS: Polyethylene Glycol 3350 17 GM Packet PO SCH (08:54)
[2023-09-15] MEDS: Acetaminophen 325 MG TAB PO PRN ×2 (09:33→18:21)
[2023-09-15] MEDS: Insulin Regular 300 UNITS/3 ML VIAL SC PRN (20:32)
[2023-09-15] MEDS: Atorvastatin Calcium 40 MG TAB PO SCH (20:33)
[2023-09-15] MEDS: Cefdinir 300 MG CAP PO SCH (20:33)
[2023-09-16] MEDS ORDERED: Potassium Chloride 20 MEQ TAB PO SCH (08:00)
[2023-09-16] MEDS: Clopidogrel Bisulfate 75 MG TAB PO SCH (08:56)
[2023-09-16] MEDS: Insulin Glargine 30 UNITS/0.3 ML VIAL SC SCH ×2 (08:56→23:07)
[2023-09-16] MEDS: Famotidine 20 MG TAB PO SCH ×2 (08:57→20:11)
[2023-09-16] MEDS: Metoprolol Tartrate 25 MG TAB PO SCH ×2 (08:57→20:11)
[2023-09-16] MEDS: Cefdinir 300 MG CAP PO SCH ×2 (08:57→20:11)
[2023-09-16] MEDS: Polyethylene Glycol 3350 17 GM Packet PO SCH (08:57)
[2023-09-16] MEDS: Aspirin 81 mg Enteric Coated Tablet PO SCH (08:57)
[2023-09-16] MEDS: Lisinopril 5 MG TAB PO SCH ×2 (08:57→20:11)
[2023-09-16 09:07] LABS: Anion Gap 15 mmol/L (10-20); BUN (Urea Nitrogen) 7 mg/dL (9.8-20.1); Calc. Creatinine Clearance 98 mL/min (70-130); Calcium 8.7 mg/dL (7.8-10.44); Carbon Dioxide 24 mmol/L (23-31); Chloride 101 mmol/L (98-107); Estimated GFR 97; Glucose 92 mg/dL (80-115); Potassium 3.1 mmol/L (3.5-5.1); Sodium 137 mmol/L (136-145)
[2023-09-16] MEDS: Acetaminophen 325 MG TAB PO PRN (18:20)
[2023-09-16] MEDS: Atorvastatin Calcium 40 MG TAB PO SCH (20:11)
[2023-09-17 04:50] LABS: #Basophils 0.1 thou/uL (0.0-0.2); #Eosinphils 0.2 thou/uL (0.0-0.7); #Monocytes 0.8 thou/uL (0.11-0.59); #Neutrophils 5.9 thou/uL (1.40-6.50); %Basophils 0.7 % (0.0-1.0); %Eosinophils 2.5 % (0.0-10.0); %Lymphocytes 15.7 % (21.0-51.0); %Monocytes 9.5 % (0.0-10.0); %Neutrophils 71.1 % (42.0-75.0); Hematocrit 31.8 % (36.0-47.0); Hemoglobin 10.2 g/dL (12.0-16.0); Mean Corpuscular HGB CONC 32.1 g/dL (32.0-36.0); Mean Corpuscular Hemoglobin 28.9 pg (27.0-31.0); Mean Corpuscular Volume 90.1 fl (78.0-98.0); Mean Platelet Volume 10.2 fL (7.4-10.4); Platelet Count 389 10x3/uL (130-400); RBC Distribution Width 13.2 % (11.5-14.5); Red Blood Cell (RBC) Count 3.53 mill/uL (4.20-5.40); White Blood Cell (WBC) Count 8.2 10x3/uL (4.8-10.8)
[2023-09-17 05:21] LABS: Anion Gap 15 mmol/L (10-20); BUN (Urea Nitrogen) 8 mg/dL (9.8-20.1); Calc. Creatinine Clearance 98 mL/min (70-130); Calcium 8.7 mg/dL (7.8-10.44); Carbon Dioxide 23 mmol/L (23-31); Chloride 103 mmol/L (98-107); Estimated GFR 97; Glucose 133 mg/dL (80-115); Potassium 3.5 mmol/L (3.5-5.1); Sodium 137 mmol/L (136-145)
[2023-09-17] MEDS: Acetaminophen 325 MG TAB PO PRN ×2 (05:40→12:17)
[2023-09-17] MEDS: Clopidogrel Bisulfate 75 MG TAB PO SCH (07:56)
[2023-09-17] MEDS: Metoprolol Tartrate 25 MG TAB PO SCH (07:56)
[2023-09-17] MEDS: Cefdinir 300 MG CAP PO SCH (07:56)
[2023-09-17] MEDS: Lisinopril 5 MG TAB PO SCH (07:56)
[2023-09-17] MEDS: Aspirin 81 mg Enteric Coated Tablet PO SCH (07:56)
[2023-09-17] MEDS: Famotidine 20 MG TAB PO SCH (07:56)
[2023-09-17] MEDS: Insulin Glargine 30 UNITS/0.3 ML VIAL SC SCH (07:57)
[2023-09-17] MEDS: Polyethylene Glycol 3350 17 GM Packet PO SCH (07:57)
[2023-09-17 12:16] VITALS: BP 137/78; TEMP 98.4
[2023-09-17 13:36] LABS: ANA Symphony (Qualitative) Negative (Negative); ANA Symphony (Quantitative) 0.2 Ratio (< 0.7 Negative); CCP IgG Antibody 1.8 EliAU/mL (<7 Negative); EliA RAS New Method **** NEW METHOD ****; dsDNA IgG Antibody 1.1 IU/mL (<10 Negative)
== END 2023-09-17 17:02 | disposition home or self-care (01) | DRG 236 ==
LOC: ERS 07:59 → 2SW 11:58 → CCU 16:05 → 2NO 09-10 11:36
PROVIDERS: ADMIT Internal Medicine; ATTEND Internal Medicine
PROC: 02100Z9 Bypass Coronary Artery, One Artery from Left Internal Mammary, Open Approach (ICD-10-PCS; principal; 2023-09-08)
PROC: 021209W Bypass Coronary Artery, Three Arteries from Aorta with Autologous Venous Tissue, Open Approach (ICD-10-PCS; 2023-09-08)
PROC: 06BQ0ZZ Excision of Left Saphenous Vein, Open Approach (ICD-10-PCS; 2023-09-08)
PROC: 02L70CK Occlusion of Left Atrial Appendage with Extraluminal Device, Open Approach (ICD-10-PCS; 2023-09-08)
PROC: 5A1221Z Performance of Cardiac Output, Continuous (ICD-10-PCS; 2023-09-08)
PROC: 4A133R1 Monitoring of Arterial Saturation, Peripheral, Percutaneous Approach (ICD-10-PCS; 2023-09-08)
PROC: 3E033XZ Introduction of Vasopressor into Peripheral Vein, Percutaneous Approach (ICD-10-PCS; 2023-09-08)
PROC: 30233J1 Transfusion of Nonautologous Serum Albumin into Peripheral Vein, Percutaneous Approach (ICD-10-PCS; 2023-09-08)
DX: I21.4 Non-ST elevation (NSTEMI) myocardial infarction (principal); E87.1 Hypo-osmolality and hyponatremia; E87.20 Acidosis, unspecified; G93.40 Encephalopathy, unspecified; N39.0 Urinary tract infection, site not specified; I25.10 Atherosclerotic heart disease of native coronary artery without angina pectoris; E11.65 Type 2 diabetes mellitus with hyperglycemia; I10 Essential (primary) hypertension; I25.2 Old myocardial infarction; Z95.5 Presence of coronary angioplasty implant and graft; Z98.890 Other specified postprocedural states; Z82.49 Family history of ischemic heart disease and other diseases of the circulatory system; M19.90 Unspecified osteoarthritis, unspecified site; Z98.51 Tubal ligation status; Z79.899 Other long term (current) drug therapy; Z79.4 Long term (current) use of insulin; Z91.148 Patient's other noncompliance with medication regimen for other reason; Z79.82 Long term (current) use of aspirin; M25.531 Pain in right wrist
CPT/HCPCS: 36415; 36416; 36430; 70450; 71045; 80048; 80053; 80061; 81001; 82533; 82805; 83036; 84439; 84443; 84484; 84550; 85025; 85610; 85730; 86038; 86200; 86225; 86850; 86900; 86901; 87040; 87077; 87086; 87186; 93005; 93010; 93306; 93458; 93798; 94002; 94150; 96361; 96374; 99152; A4311; C1751; C1769; J0153; J0690; J0696; J1642; J1644; J1650; J1815; J1885; J1940; J2001; J2150; J2250; J2272; J2405; J2440; J2704; J2720; J3010; J3370; J3475; J3480; J3490; J7050; J7120; P9045; Q9967; S0017; S0028

== ENCOUNTER 2023-10-22 15:49 | Emergency (ER) | payer MEDICARE ==
[~2023-10-22 15:49] MED LIST: Iopamidol-370 76% 500 ML MDV (1 ML CHARGE) ONE
[2023-10-22] MEDS ORDERED: Morphine 4 MG/ML VIAL ONE (16:34)
[2023-10-22] MEDS ORDERED: Ondansetron PF 4 MG/2 ML Vial ONE (16:35)
[2023-10-22 16:59] LABS: #Basophils 0.1 thou/uL (0.0-0.2); #Monocytes 1.2 thou/uL (0.11-0.59); #Neutrophils 5.5 thou/uL (1.40-6.50); %Basophils 0.6 % (0.0-1.0); %Eosinophils 0.1 % (0.0-10.0); %Lymphocytes 18.3 % (21.0-51.0); %Monocytes 14.3 % (0.0-10.0); %Neutrophils 66.5 % (42.0-75.0); Hematocrit 37.6 % (36.0-47.0); Hemoglobin 11.9 g/dL (12.0-16.0); Mean Corpuscular HGB CONC 31.6 g/dL (32.0-36.0); Mean Corpuscular Hemoglobin 27.7 pg (27.0-31.0); Mean Corpuscular Volume 87.4 fl (78.0-98.0); Mean Platelet Volume 9.6 fL (7.4-10.4); Platelet Count 310 10x3/uL (130-400); RBC Distribution Width 13.2 % (11.5-14.5); White Blood Cell (WBC) Count 8.3 10x3/uL (4.8-10.8)
[2023-10-22 17:20] LABS: SARS-CoV-2 NAA Rapid Test Not Detected (NotDetected)
[2023-10-22 17:24] LABS: ALT (SGPT) 9 U/L (8-55); AST (SGOT) 12 U/L (5-34); Albumin 4.1 g/dL (3.4-4.8); Alkaline Phosphatase 115 U/L (40-110); Anion Gap 17 mmol/L (10-20); BUN (Urea Nitrogen) 16 mg/dL (9.8-20.1); Bilirubin, Total 0.8 mg/dL (0.2-1.2); CK (CPK) 34 U/L (29-168); Calc. Creatinine Clearance 0 mL/min (70-130); Calcium 9.6 mg/dL (7.8-10.44); Carbon Dioxide 22 mmol/L (23-31); Chloride 99 mmol/L (98-107); Estimated GFR 65; Globulin 4.4 g/dL (2.4-3.5); Glucose 146 mg/dL (80-115); Potassium 4.2 mmol/L (3.5-5.1); Protein, Total 8.5 g/dL (5.8-8.1); Sodium 134 mmol/L (136-145)
[2023-10-22 17:28] LABS: Troponin I Less than 0.010 ng/mL (< 0.028)
[2023-10-22 17:54] LABS: CRP (Inflammatory) 8.91 mg/dL (= or < 0.5); Lipase 25 U/L (8-78); Magnesium 1.4 mg/dL (1.6-2.6)
[2023-10-22] MEDS ORDERED: Magnesium 2 GM/50 ML BAG (IN WATER) ONE (18:13)
[2023-10-22 19:14] LABS: Bilirubin Negative (Negative); Blood, Urine Negative (Negative); Glucose, Urine (Dipstick) Negative (Negative); Ketone, Urine Negative (Negative); Leukocyte Negative (Negative); Nitrite Negative (Negative); Protein, Urine (Dipstick) Negative (Neg-Trace); Specific Gravity, Urine 1.015 (1.005-1.030); Urobilinogen 0.2 mg/dL (Less than 2)
[2023-10-22 19:15] LABS: Clarity Clear (Clear)
[2023-10-22 19:16] LABS: Bacteria/HPF 1+ HPF (None Seen); CAUTI Indications for Culture Alt mental st,lethar; RBC/HPF 0-3 HPF (0-3); Squamous Epithelial 0-3 HPF (0-3); WBC/HPF 0-3 HPF (0-3)
[2023-10-22 19:17] LABS: Urine Culture Reflex No No
== END 2023-10-22 20:27 | disposition home or self-care (01) ==
LOC: ERS 15:49
DX: M54.50 Low back pain, unspecified (principal); R53.1 Weakness; R91.1 Solitary pulmonary nodule; E83.42 Hypomagnesemia; I10 Essential (primary) hypertension; E11.9 Type 2 diabetes mellitus without complications; R00.9 Unspecified abnormalities of heart beat
CPT/HCPCS: 0240U; 51701; 71045; 71275; 72170; 74177; 81001; 82550; 83605; 83690; 83735; 83880; 84484; 86140; 93005; 94760; 96361; 96365; 96375; 99285; 36415; 80053; 84443; 85025; J2270; J2405; J3475; Q9967

== ENCOUNTER 2023-10-24 09:54 | Inpatient (IN) | payer MEDICARE ==
[2023-10-24 10:24] LABS: #Monocytes 0.9 thou/uL (0.11-0.59); #Neutrophils 7.3 thou/uL (1.40-6.50); %Basophils 0.4 % (0.0-1.0); %Lymphocytes 13.2 % (21.0-51.0); %Monocytes 9.4 % (0.0-10.0); %Neutrophils 76.6 % (42.0-75.0); Hematocrit 36.9 % (36.0-47.0); Hemoglobin 11.8 g/dL (12.0-16.0); Mean Corpuscular Hemoglobin 26.7 pg (27.0-31.0); Mean Corpuscular Volume 83.5 fl (78.0-98.0); Mean Platelet Volume 9.9 fL (7.4-10.4); Platelet Count 355 10x3/uL (130-400); RBC Distribution Width 13.1 % (11.5-14.5); Red Blood Cell (RBC) Count 4.42 mill/uL (4.20-5.40); White Blood Cell (WBC) Count 9.6 10x3/uL (4.8-10.8)
[2023-10-24] MEDS ORDERED: Morphine 4 MG/ML VIAL ONE (10:56)
[2023-10-24 10:57] LABS: Troponin I 0.016 ng/mL (< 0.028)
[2023-10-24] MEDS ORDERED: Ondansetron PF 4 MG/2 ML Vial ONE (10:57)
[2023-10-24 11:40] LABS: Chloride 95 mmol/L (98-107); Potassium 4.4 mmol/L (3.5-5.1); Sodium 131 mmol/L (136-145)
[2023-10-24 11:41] LABS: Calcium 9.5 mg/dL (7.8-10.44)
[2023-10-24 11:42] LABS: Globulin 4.6 g/dL (2.4-3.5); Glucose 258 mg/dL (80-115); Protein, Total 8.6 g/dL (5.8-8.1)
[2023-10-24 11:43] LABS: Anion Gap 17 mmol/L (10-20); Bilirubin, Total 1.1 mg/dL (0.2-1.2); Carbon Dioxide 23 mmol/L (23-31)
[2023-10-24 11:44] LABS: Alkaline Phosphatase 112 U/L (40-110)
[2023-10-24 11:45] LABS: Calc. Creatinine Clearance 0 mL/min (70-130); Estimated GFR 73
[2023-10-24 11:46] LABS: BUN (Urea Nitrogen) 13 mg/dL (9.8-20.1)
[2023-10-24 11:47] LABS: AST (SGOT) 12 U/L (5-34)
[2023-10-24 11:48] LABS: ALT (SGPT) 7 U/L (8-55)
[2023-10-24] MEDS ORDERED: Iopamidol-370 76% 500 ML MDV (1 ML CHARGE) ONE (13:06)
[2023-10-24] MEDS ORDERED: Glucagon 1 MG/ML KIT IM PRN (17:25)
[2023-10-24] MEDS ORDERED: Dextrose 50% Abboject 50 ML SYRINGE SLOW IVP PRN (17:25)
[2023-10-24] MEDS ORDERED: Dextrose 5% in Water 1,000 ML IV PRN (17:25)
[2023-10-24] MEDS ORDERED: HumaLOG 300 UNITS/3 ML VIAL SC PRN (17:25)
[2023-10-24] MEDS ORDERED: Ibuprofen 200 MG TAB PO PRN ×2 (17:38→18:22)
[2023-10-24] MEDS ORDERED: Losartan 25 MG TAB PO SCH (20:30)
[2023-10-24] MEDS: Melatonin 3 MG TAB PO SCH (20:43)
[2023-10-24] MEDS: Acetaminophen 500 MG TAB PO PRN (20:43)
[2023-10-24] MEDS ORDERED: Metoprolol Tartrate 25 MG TAB PO SCH ×2 (21:00→23:15)
[2023-10-24 21:02] LABS: Acetaminophen Less than 10 mcg/mL (10.0-30.0)
[2023-10-24 21:40] LABS: CRP (Inflammatory) 31.19 mg/dL (= or < 0.5)
[2023-10-24] MEDS: Insulin Regular 300 UNITS/3 ML VIAL SC PRN (21:42)
[2023-10-24 23:49] LABS: Bacteria/HPF None Seen HPF (None Seen); Bilirubin Negative (Negative); Blood, Urine Negative (Negative); CAUTI Indications for Culture Alt mental st,lethar; Clarity Clear (Clear); Glucose, Urine (Dipstick) 50 mg/dL (Negative); Ketone, Urine 20 mg/dL (Negative); Leukocyte Negative Leu/uL (Negative); Nitrite Negative (Negative); Protein, Urine (Dipstick) 30 mg/dL (Neg-Trace); RBC/HPF None Seen HPF (0-3); Specific Gravity, Urine 1.021 (1.002-1.036); Squamous Epithelial 0-3 HPF (0-3); Urobilinogen Normal mg/dL (Less than 2); WBC/HPF None Seen HPF (0-3); pH, Urine 5.5 (5.0-9.0)
[2023-10-24 23:52] LABS: Urine Culture Reflex No No
[2023-10-24 23:56] LABS: Amphetamine Not Detected (NotDetected); Barbiturates Screen Not Detected (NotDetected); Benzodiazepine Screen Not Detected (NotDetected); Cocaine Metabolite Screen Not Detected (NotDetected); Methadone Not Detected (NotDetected); Methamphetamine Not Detected (NotDetected); Opiate Screen Detected (NotDetected); Oxycodone Screen Not Detected (NotDetected); Phencyclidine (PCP) Not Detected (NotDetected); THC/Cannabinoid Screen Not Detected (NotDetected); Tricyclic Screen Not Detected (NotDetected)
[2023-10-24] MEDS ORDERED: cefTRIAXone\\ROCEPHIN 1 GM in Sodium Chloride 0.9% 100 ML IVPB SCH (23:59)
[2023-10-25 00:25] LABS: SARS-CoV-2 NAA Rapid Test Not Detected (NotDetected)
[2023-10-25 06:24] LABS: #Neutrophils 5.9 thou/uL (1.40-6.50); %Basophils 0.5 % (0.0-1.0); %Eosinophils 0.1 % (0.0-10.0); %Monocytes 11.8 % (0.0-10.0); %Neutrophils 71.2 % (42.0-75.0); Hematocrit 33.7 % (36.0-47.0); Hemoglobin 10.7 g/dL (12.0-16.0); Mean Corpuscular HGB CONC 31.8 g/dL (32.0-36.0); Mean Corpuscular Hemoglobin 27.2 pg (27.0-31.0); Mean Corpuscular Volume 85.8 fl (78.0-98.0); Mean Platelet Volume 9.9 fL (7.4-10.4); Platelet Count 334 10x3/uL (130-400); RBC Distribution Width 13.2 % (11.5-14.5); Red Blood Cell (RBC) Count 3.93 mill/uL (4.20-5.40); White Blood Cell (WBC) Count 8.3 10x3/uL (4.8-10.8)
[2023-10-25] MEDS ORDERED: Lorazepam 1 MG TAB PO PRN (06:51)
[2023-10-25 06:54] LABS: ALT (SGPT) Less than 7 U/L (8-55); AST (SGOT) 8 U/L (5-34); Albumin 3.5 g/dL (3.4-4.8); Alkaline Phosphatase 101 U/L (40-110); Anion Gap 16 mmol/L (10-20); BUN (Urea Nitrogen) 19 mg/dL (9.8-20.1); Bilirubin, Total 0.8 mg/dL (0.2-1.2); Calc. Creatinine Clearance 66 mL/min (70-130); Calcium 9.6 mg/dL (7.8-10.44); Carbon Dioxide 24 mmol/L (23-31); Cardiac Risk 6.4 (Less than 4.5); Chloride 97 mmol/L (98-107); Cholesterol 153 mg/dl (< 200 Desired); Estimated GFR 64; Globulin 4.5 g/dL (2.4-3.5); Glucose 252 mg/dL (80-115); HDL Cholesterol 24 mg/dL (>60 Neg Risk); LDL Cholesterol, Calculated 109 mg/dL; Potassium 4.2 mmol/L (3.5-5.1); Sodium 133 mmol/L (136-145); Triglycerides 99 mg/dL (Less than 150)
[2023-10-25 07:15] LABS: Thyroid Stimulating Hormone 0.9254 uIU/mL (0.35-4.94)
[2023-10-25 07:27] LABS: HIV (1/2) Antibody/Antigen Non-Reactive (NonReactive); HIV 1/2 INDEX 0.11 S/CO (<1.00); Hep C IgG Ab Non-Reactive S/CO (NonReactive); Hep C Index 0.24 S/CO (0-0.79)
[2023-10-25] MEDS ORDERED: Insulin Regular 300 UNITS/3 ML VIAL SC PRN (08:16)
[2023-10-25] MEDS: Insulin Glargine 30 UNITS/0.3 ML VIAL SC SCH ×2 (08:26→22:39)
[2023-10-25] MEDS: Aspirin 81 mg Enteric Coated Tablet PO SCH (08:26)
[2023-10-25] MEDS: Losartan 25 MG TAB PO SCH (08:26)
[2023-10-25] MEDS: Enoxaparin 40 MG (0.4 mL) SYRINGE SC SCH (08:27)
[2023-10-25] MEDS: Clopidogrel Bisulfate 75 MG TAB PO SCH (08:29)
[2023-10-25] MEDS ORDERED: Lorazepam 0.5 MG TAB PO PRN (09:02)
[2023-10-25] MEDS ORDERED: Morphine 4 MG/ML VIAL SLOW IVP PRN ×2 (09:28→11:15)
[2023-10-25] MEDS ORDERED: Naloxone HCl 0.4 mg/ml Vial IV PRN (09:38)
[2023-10-25] MEDS ORDERED: Colchicine 0.6 MG TAB PO SCH ×2 (13:30→17:30)
[2023-10-25] MEDS: Insulin Regular 300 UNITS/3 ML VIAL SC PRN (15:10)
[2023-10-25] MEDS ORDERED: Atorvastatin Calcium 40 MG TAB PO SCH (21:00)
[2023-10-25] MEDS: Atorvastatin Calcium 40 MG TAB PO SCH (21:03)
[2023-10-25] MEDS: Melatonin 3 MG TAB PO SCH (21:04)
[2023-10-25] MEDS: cefTRIAXone\\ROCEPHIN 1 GM in Sodium Chloride 0.9% 100 ML IVPB SCH (21:04)
[2023-10-26] MEDS: Ondansetron PF 4 MG/2 ML Vial IVP PRN ×3 (01:14→14:51)
[2023-10-26 05:10] LABS: #Eosinphils 0.1 thou/uL (0.0-0.7); #Monocytes 0.8 thou/uL (0.11-0.59); #Neutrophils 5.8 thou/uL (1.40-6.50); %Basophils 0.5 % (0.0-1.0); %Eosinophils 0.7 % (0.0-10.0); %Lymphocytes 20.9 % (21.0-51.0); %Monocytes 9.5 % (0.0-10.0); Hematocrit 33.7 % (36.0-47.0); Mean Corpuscular HGB CONC 32.6 g/dL (32.0-36.0); Mean Corpuscular Hemoglobin 27.7 pg (27.0-31.0); Mean Corpuscular Volume 84.9 fl (78.0-98.0); Platelet Count 343 10x3/uL (130-400); RBC Distribution Width 13.3 % (11.5-14.5); Red Blood Cell (RBC) Count 3.97 mill/uL (4.20-5.40); White Blood Cell (WBC) Count 8.6 10x3/uL (4.8-10.8)
[2023-10-26 05:40] LABS: ALT (SGPT) 8 U/L (8-55); AST (SGOT) 17 U/L (5-34); Albumin 3.3 g/dL (3.4-4.8); Alkaline Phosphatase 100 U/L (40-110); Anion Gap 17 mmol/L (10-20); BUN (Urea Nitrogen) 20 mg/dL (9.8-20.1); Bilirubin, Total 0.5 mg/dL (0.2-1.2); Calc. Creatinine Clearance 78 mL/min (70-130); Calcium 9.3 mg/dL (7.8-10.44); Carbon Dioxide 22 mmol/L (23-31); Chloride 98 mmol/L (98-107); Estimated GFR 73; Globulin 4.4 g/dL (2.4-3.5); Glucose 163 mg/dL (80-115); Potassium 3.9 mmol/L (3.5-5.1); Protein, Total 7.7 g/dL (5.8-8.1); Sodium 133 mmol/L (136-145); Uric Acid 5.8 mg/dL (2.6-6.0)
[2023-10-26] MEDS: Losartan 25 MG TAB PO SCH (08:30)
[2023-10-26] MEDS: Insulin Glargine 30 UNITS/0.3 ML VIAL SC SCH ×2 (08:30→21:11)
[2023-10-26] MEDS: Clopidogrel Bisulfate 75 MG TAB PO SCH (08:30)
[2023-10-26] MEDS: Enoxaparin 40 MG (0.4 mL) SYRINGE SC SCH (08:30)
[2023-10-26] MEDS: Aspirin 81 mg Enteric Coated Tablet PO SCH (08:30)
[2023-10-26] MEDS ORDERED: Polyethylene Glycol 3350 17 GM Packet PO SCH (09:00)
[2023-10-26] MEDS ORDERED: Lactulose 20 GM (30 mL) UDCUP PO SCH ×2 (10:00→15:00)
[2023-10-26] MEDS ORDERED: Lactated Ringer's 1,000 ML IV SCH (10:00)
[2023-10-26] MEDS ORDERED: Colchicine 0.6 MG TAB PO SCH ×2 (10:00→21:00)
[2023-10-26] MEDS: Insulin Regular 300 UNITS/3 ML VIAL SC PRN ×2 (13:05→18:21)
[2023-10-26] MEDS: HYDROcodone/Acetaminophen 5/325 mg Tablet PO PRN ×2 (14:51→21:10)
[2023-10-26] MEDS: Lactated Ringer's 1,000 ML IV SCH (16:46)
[2023-10-26] MEDS: Senokot S 8.6-50 MG TAB PO SCH (21:09)
[2023-10-26] MEDS: Melatonin 3 MG TAB PO SCH (21:09)
[2023-10-26] MEDS: Atorvastatin Calcium 40 MG TAB PO SCH (21:10)
[2023-10-26] MEDS: cefTRIAXone\\ROCEPHIN 1 GM in Sodium Chloride 0.9% 100 ML IVPB SCH (21:11)
[2023-10-26] MEDS: Polyethylene Glycol 3350 17 GM Packet PO SCH (21:12)
[2023-10-26] MEDS: Colchicine 0.6 MG TAB PO SCH (22:01)
[2023-10-27] MEDS: Lactated Ringer's 1,000 ML IV SCH ×3 (03:57→20:58)
[2023-10-27 04:46] LABS: #Basophils 0.1 thou/uL (0.0-0.2); #Eosinphils 0.2 thou/uL (0.0-0.7); #Monocytes 0.5 thou/uL (0.11-0.59); %Basophils 0.9 % (0.0-1.0); %Eosinophils 3.4 % (0.0-10.0); %Lymphocytes 30.8 % (21.0-51.0); %Monocytes 9.7 % (0.0-10.0); Hematocrit 32.9 % (36.0-47.0); Hemoglobin 10.3 g/dL (12.0-16.0); Mean Corpuscular HGB CONC 31.3 g/dL (32.0-36.0); Mean Corpuscular Hemoglobin 26.6 pg (27.0-31.0); Mean Platelet Volume 10.2 fL (7.4-10.4); Platelet Count 344 10x3/uL (130-400); RBC Distribution Width 13.5 % (11.5-14.5); Red Blood Cell (RBC) Count 3.87 mill/uL (4.20-5.40); White Blood Cell (WBC) Count 5.4 10x3/uL (4.8-10.8)
[2023-10-27 05:16] LABS: Anion Gap 14 mmol/L (10-20); BUN (Urea Nitrogen) 18 mg/dL (9.8-20.1); Calc. Creatinine Clearance 83 mL/min (70-130); Carbon Dioxide 23 mmol/L (23-31); Chloride 101 mmol/L (98-107); Potassium 3.4 mmol/L (3.5-5.1); Sodium 135 mmol/L (136-145)
[2023-10-27 05:17] LABS: ALT (SGPT) 8 U/L (8-55); AST (SGOT) 18 U/L (5-34); Alkaline Phosphatase 91 U/L (40-110); Bilirubin, Total 0.5 mg/dL (0.2-1.2); Calcium 8.9 mg/dL (7.8-10.44); Estimated GFR 80; Globulin 3.8 g/dL (2.4-3.5); Glucose 87 mg/dL (80-115); Protein, Total 6.8 g/dL (5.8-8.1)
[2023-10-27] MEDS ORDERED: Potassium Chloride 20 MEQ TAB PO SCH (05:45)
[2023-10-27] MEDS ORDERED: PROPOFOL 20 ML ONE (08:29)
[2023-10-27] MEDS ORDERED: Ketamine In 0.9 % NaCl 50 MG/5 ML SYRINGE ONE (08:29)
[2023-10-27] MEDS ORDERED: PHENYLEPHRINE-NS 100 MCG/ML 10 ML SYRINGE ONE (08:29)
[2023-10-27 09:25] VITALS: BMI 27.9
[2023-10-27] MEDS: Senokot S 8.6-50 MG TAB PO SCH ×2 (10:50→21:02)
[2023-10-27] MEDS: Polyethylene Glycol 3350 17 GM Packet PO SCH ×2 (10:51→21:02)
[2023-10-27] MEDS: Losartan 25 MG TAB PO SCH (10:51)
[2023-10-27] MEDS: Colchicine 0.6 MG TAB PO SCH ×2 (10:58→20:59)
[2023-10-27] MEDS: Acetaminophen 500 MG TAB PO PRN (11:01)
[2023-10-27] MEDS: Enoxaparin 40 MG (0.4 mL) SYRINGE SC SCH (11:14)
[2023-10-27] MEDS: Aspirin 81 mg Enteric Coated Tablet PO SCH (11:14)
[2023-10-27] MEDS: Insulin Glargine 30 UNITS/0.3 ML VIAL SC SCH ×2 (11:15→21:06)
[2023-10-27] MEDS: Clopidogrel Bisulfate 75 MG TAB PO SCH (11:15)
[2023-10-27] MEDS ORDERED: FLU VACC QS2023-24(6MOS UP)/PF 60 MCG/0.5 ML SYRINGE IM ONE (20:15)
[2023-10-27] MEDS: Ondansetron PF 4 MG/2 ML Vial IVP PRN (20:58)
[2023-10-27] MEDS: Melatonin 3 MG TAB PO SCH (20:58)
[2023-10-27] MEDS: Atorvastatin Calcium 40 MG TAB PO SCH (20:58)
[2023-10-28] MEDS: Lactated Ringer's 1,000 ML IV SCH (05:38)
[2023-10-28 06:11] LABS: #Eosinphils 0.2 thou/uL (0.0-0.7); #Monocytes 0.5 thou/uL (0.11-0.59); %Basophils 0.5 % (0.0-1.0); %Eosinophils 3.7 % (0.0-10.0); %Lymphocytes 32.9 % (21.0-51.0); %Monocytes 8.7 % (0.0-10.0); %Neutrophils 53.8 % (42.0-75.0); Hematocrit 31.4 % (36.0-47.0); Hemoglobin 9.8 g/dL (12.0-16.0); Mean Corpuscular HGB CONC 31.2 g/dL (32.0-36.0); Mean Corpuscular Hemoglobin 26.9 pg (27.0-31.0); Mean Corpuscular Volume 86.3 fl (78.0-98.0); Mean Platelet Volume 10.2 fL (7.4-10.4); Platelet Count 347 10x3/uL (130-400); RBC Distribution Width 13.4 % (11.5-14.5); Red Blood Cell (RBC) Count 3.64 mill/uL (4.20-5.40); White Blood Cell (WBC) Count 5.7 10x3/uL (4.8-10.8)
[2023-10-28 06:41] LABS: ALT (SGPT) 8 U/L (8-55); AST (SGOT) 18 U/L (5-34); Alkaline Phosphatase 94 U/L (40-110); Anion Gap 14 mmol/L (10-20); BUN (Urea Nitrogen) 12 mg/dL (9.8-20.1); Bilirubin, Total 0.3 mg/dL (0.2-1.2); Calc. Creatinine Clearance 98 mL/min (70-130); Calcium 8.7 mg/dL (7.8-10.44); Carbon Dioxide 22 mmol/L (23-31); Chloride 105 mmol/L (98-107); Estimated GFR 97; Globulin 3.7 g/dL (2.4-3.5); Glucose 73 mg/dL (80-115); Potassium 3.7 mmol/L (3.5-5.1); Protein, Total 6.7 g/dL (5.8-8.1); Sodium 137 mmol/L (136-145)
[2023-10-28] MEDS ORDERED: Polyethylene Glycol 3350 17 GM Packet PO PRN (07:07)
[2023-10-28] MEDS ORDERED: Lactated Ringer's 1,000 ML IV SCH (07:12)
[2023-10-28] MEDS ORDERED: Losartan 25 MG TAB PO SCH (09:30)
[2023-10-28] MEDS: Ezetimibe 10 MG TAB PO SCH (10:51)
[2023-10-28] MEDS: Insulin Glargine 30 UNITS/0.3 ML VIAL SC SCH ×3 (10:51→22:06)
[2023-10-28] MEDS: Colchicine 0.6 MG TAB PO SCH ×2 (10:51→22:05)
[2023-10-28] MEDS: Clopidogrel Bisulfate 75 MG TAB PO SCH (11:05)
[2023-10-28] MEDS: Senokot S 8.6-50 MG TAB PO SCH ×3 (11:05→21:57)
[2023-10-28] MEDS: Aspirin 81 mg Enteric Coated Tablet PO SCH (11:05)
[2023-10-28] MEDS: Enoxaparin 40 MG (0.4 mL) SYRINGE SC SCH (12:29)
[2023-10-28] MEDS: Acetaminophen 500 MG TAB PO PRN (12:31)
[2023-10-28] MEDS: Melatonin 3 MG TAB PO SCH (22:05)
[2023-10-28] MEDS: Atorvastatin Calcium 40 MG TAB PO SCH (22:05)
[2023-10-29 06:06] LABS: #Eosinphils 0.3 thou/uL (0.0-0.7); #Monocytes 0.5 thou/uL (0.11-0.59); #Neutrophils 2.7 thou/uL (1.40-6.50); %Basophils 0.8 % (0.0-1.0); %Eosinophils 5.6 % (0.0-10.0); %Monocytes 9.7 % (0.0-10.0); %Neutrophils 53.7 % (42.0-75.0); Hematocrit 32.9 % (36.0-47.0); Hemoglobin 10.6 g/dL (12.0-16.0); Mean Corpuscular HGB CONC 32.2 g/dL (32.0-36.0); Mean Corpuscular Hemoglobin 27.2 pg (27.0-31.0); Mean Corpuscular Volume 84.4 fl (78.0-98.0); Mean Platelet Volume 10.3 fL (7.4-10.4); Platelet Count 356 10x3/uL (130-400); RBC Distribution Width 13.4 % (11.5-14.5)
[2023-10-29 06:24] LABS: ALT (SGPT) 9 U/L (8-55); AST (SGOT) 18 U/L (5-34); Albumin 3.3 g/dL (3.4-4.8); Alkaline Phosphatase 103 U/L (40-110); Anion Gap 11 mmol/L (10-20); BUN (Urea Nitrogen) 9 mg/dL (9.8-20.1); Bilirubin, Total 0.3 mg/dL (0.2-1.2); Calc. Creatinine Clearance 95 mL/min (70-130); Calcium 9.1 mg/dL (7.8-10.44); Carbon Dioxide 24 mmol/L (23-31); Chloride 105 mmol/L (98-107); Estimated GFR 93; Globulin 3.8 g/dL (2.4-3.5); Glucose 117 mg/dL (80-115); Potassium 3.5 mmol/L (3.5-5.1); Protein, Total 7.1 g/dL (5.8-8.1); Sodium 136 mmol/L (136-145)
[2023-10-29] MEDS ORDERED: Senokot S 8.6-50 MG TAB PO PRN (08:36)
[2023-10-29] MEDS ORDERED: Losartan 25 MG TAB PO SCH (09:00)
[2023-10-29] MEDS ORDERED: Potassium Chloride 20 MEQ TAB PO SCH (09:45)
[2023-10-29] MEDS: Enoxaparin 40 MG (0.4 mL) SYRINGE SC SCH (10:25)
[2023-10-29] MEDS: Ezetimibe 10 MG TAB PO SCH (10:26)
[2023-10-29] MEDS: Clopidogrel Bisulfate 75 MG TAB PO SCH (10:26)
[2023-10-29] MEDS: Insulin Glargine 30 UNITS/0.3 ML VIAL SC SCH ×2 (10:27→22:37)
[2023-10-29] MEDS: Lisinopril 10 MG TAB PO SCH ×2 (10:27→22:36)
[2023-10-29] MEDS: Aspirin 81 mg Enteric Coated Tablet PO SCH (10:29)
[2023-10-29] MEDS: Melatonin 3 MG TAB PO SCH (22:36)
[2023-10-29] MEDS: Atorvastatin Calcium 40 MG TAB PO SCH (22:36)
[2023-10-30] MEDS: Clopidogrel Bisulfate 75 MG TAB PO SCH (08:36)
[2023-10-30] MEDS: Ezetimibe 10 MG TAB PO SCH (08:36)
[2023-10-30] MEDS: Lisinopril 10 MG TAB PO SCH (08:36)
[2023-10-30] MEDS: Aspirin 81 mg Enteric Coated Tablet PO SCH (08:36)
[2023-10-30] MEDS: Enoxaparin 40 MG (0.4 mL) SYRINGE SC SCH (08:37)
[2023-10-30] MEDS: Insulin Glargine 30 UNITS/0.3 ML VIAL SC SCH (08:37)
[2023-10-30 13:14] VITALS: BP 135/82; TEMP 97.4
== END 2023-10-30 13:44 | disposition home health service (06) | DRG 64 ==
LOC: ERS 09:54 → 2SE 17:00 → OBSVTOIN 10-26 10:58
PROVIDERS: ADMIT Family Medicine; ATTEND Family Medicine
PROC: B245ZZ4 Ultrasonography of Left Heart, Transesophageal (ICD-10-PCS; principal; 2023-10-27)
DX: I63.9 Cerebral infarction, unspecified (principal); G93.41 Metabolic encephalopathy; N39.0 Urinary tract infection, site not specified; R53.1 Weakness; I10 Essential (primary) hypertension; R91.1 Solitary pulmonary nodule; N63.10 Unspecified lump in the right breast, unspecified quadrant; I25.10 Atherosclerotic heart disease of native coronary artery without angina pectoris; M19.90 Unspecified osteoarthritis, unspecified site; I08.1 Rheumatic disorders of both mitral and tricuspid valves; I70.0 Atherosclerosis of aorta; I25.2 Old myocardial infarction; E78.5 Hyperlipidemia, unspecified; M25.462 Effusion, left knee; E11.65 Type 2 diabetes mellitus with hyperglycemia; Z95.1 Presence of aortocoronary bypass graft; Z85.3 Personal history of malignant neoplasm of breast; Z79.82 Long term (current) use of aspirin; Z79.899 Other long term (current) drug therapy; Z79.4 Long term (current) use of insulin; Z82.49 Family history of ischemic heart disease and other diseases of the circulatory system; Z98.890 Other specified postprocedural states; Z11.52 Encounter for screening for COVID-19
CPT/HCPCS: 36415; 36416; 70450; 70551; 71275; 72141; 72146; 72148; 80053; 80061; 80143; 80306; 81001; 82140; 82728; 83036; 83880; 84145; 84443; 84484; 84550; 85025; 86140; 86803; 87040; 87077; 87086; 87186; 87389; 93005; 93306; 93312; 93880; 96372; 96374; 96375; 96376; 80307; G0378; J0696; J1650; J1815; J2270; J2405; J2704; J3490; J7120; Q9967